=== PATIENT | male | born 1940 | race African-American/Black ===

== ENCOUNTER 2017-04-01 09:45 | Day surgery (SDC) | payer MEDICARE, OTHER ==
[~2017-04-01 09:45] MED LIST: BUPIVACAINE HCL 0.75% INJ/PF (7.5 MG/1 ML) 10 ML SDV OS PRN; KETOROLAC TROMETHAMINE 0.45% 4 DROP/0.4 ML DROPERETTE OS PRN; LIDOCAINE 4% INJ/PF (40 MG/ML) 5 ML AMPUL OS PRN
[2017-04-01] MEDS ORDERED: PHENYLEPHRINE/KETOROLAC 1%-0.3% 4 ML VIAL ONE (10:34)
[2017-04-01] MEDS ORDERED: HYALURONATE SODIUM SYRINGE 0.55 ML ONE (10:35)
[2017-04-01] MEDS ORDERED: CHONDR SU A NA/HYALUR INTRAOC KIT (SURGICARE) ONE (10:35)
[2017-04-01] MEDS ORDERED: LIDOCAINE 1% INJ-PF (10 MG/ML) 30 ML SDV ONE (10:35)
[2017-04-01] MEDS: CYCLOPENTOLATE 0.2%/PHENYLEPHRINE 1% OPH SOLN 2 ML OS PRN ×3 (10:55→11:21)
[2017-04-01] MEDS: TROPICAMIDE 1% OPH SOLN 3 ML OS PRN ×3 (10:55→11:21)
[2017-04-01] MEDS: BESIFLOXACIN HCL 0.6% OPH SUSP 5 ML BOTTLE OS PRN ×3 (10:56→12:19)
[2017-04-01] MEDS: TETRACAINE HCL 0.5% OPH SOLN 0.6 ML DROPERETTE OS PRN ×2 (10:58→11:22)
[2017-04-01] MEDS ORDERED: FENTANYL CITRATE INJ/PF 100 MCG/2 ML AMPUL ONE (11:09)
[2017-04-01] MEDS ORDERED: MIDAZOLAM 2 MG/2 ML INJ ONE (11:09)
--- NOTE | 2017-04-01 12:43 | [facility] OPERATIVE REPORT E ---
[facility] Operative Report NAME: JV SANTANA AGE: 77Y DATE OF SURGERY: ROOM: [facility] Operative Report PREOPERATIVE DIAGNOSES: 1. CATARACT, LEFT EYE. 2. GLAUCOMA, LEFT EYE. POSTOPERATIVE DIAGNOSES: 1. CATARACT, LEFT EYE. 2. GLAUCOMA, LEFT EYE. PROCEDURES PERFORMED: 1. PHACOEMULSIFICATION WITH INTRAOCULAR LENS IMPLANT, LEFT EYE. 2. INSERTION OF iSTENT, LEFT EYE. SURGEON: XAVIER DUMONT MD ANESTHESIA: TOPICAL WITH MAC. PROCEDURE: The patient was brought to the Operating Room and placed on the operative table. Following tetracaine drops, topical anesthesia was administered. This consisted of instrument wipe pledgets soaked in a solution of 4% Xylocaine mixed with 0.75% Marcaine in a 1:2 ratio. A 2 x 1 cm pledget was placed in the superior fornix. A 1 x 1 cm pledget was placed in the inferior fornix. The eye was patched shut for 5 minutes. The patch was removed. The eye was sterilely prepped and draped in the usual manner. Lid speculum was placed in the eye. The pledgets were removed. 4-0 black silk sutures were placed around the superior and the inferior rectus muscles to be used as traction. A conjunctival peritomy was made at the 10 o'clock position. Hemostasis was obtained with bipolar cautery. A posterior limbal groove was created using a crescent knife and dissected anteriorly towards the cornea. A sharp point blade was used to create a paracentesis site at the 2 o'clock position. A 2.4 mm keratome was used to enter the anterior chamber through the groove. Viscoelastic was injected into the anterior chamber. An anterior capsulotomy was performed using Utrata forceps in a capsulorrhexis fashion. Hydrodissection and hydrodelineation were performed. Phacoemulsification was performed in lqshzh-gvj-gtgkjte technique. A total of 52 seconds phaco time was used. Following this, the I/A unit was used to remove residual cortex. Viscoelastic was injected into the capsular bag. Intraocular lens model [id number], 20.5 diopters, serial number [id number] was placed in the capsular bag. Provisc was used to deepen the anterior chamber. The gonioprism was placed on the eye after this was then rotated 30 degrees, and the trabecular meshwork was visualized. The iSTENT was opened and placed in the trabecular meshwork. The I/A unit was used to remove residual viscoelastic. The wound was seen to be watertight under high and low pressure, and no sutures were placed. The intraocular lens was well centered. The pressure was adjusted in the eye to normal pressure. The 4-0 black silk sutures and lid speculum were removed. The eye was shielded after Besivance drops were placed. The patient tolerated the procedure well and was sent to the Recovery Room in good condition. DICTATING PHYSICIAN: XAVIER DUMONT M.D. DICTATING PHYSICIAN: XAVIER DUMONT M.D. [id number] PHY#: [id number] ID: [id number] JOB#: [id number] ACCT: [id number] cc:XAVIER DUMONT M.D. > MTDD
--- NOTE | 2017-04-01 12:48 | [facility] DISCHARGE SUMMARY E ---
[facility] Discharge Summary NAME: JV SANTANA AGE: 77Y ADMITTED: 04/01/2017 DISCHARGED: 04/01/2017 FINAL DIAGNOSES: 1. Cataract, left eye. 2. Glaucoma, left eye. HOSPITAL COURSE: The patient is a 77-year-old gentleman who underwent uneventful cataract extraction with intraocular lens implant, left eye, with insertion of iSTENT on 04/01/17. DISPOSITION: The patient was discharged to home. DISCHARGE INSTRUCTIONS: He is instructed to resume preoperative medications, including glaucoma drops, to use Durezol, Ilevro, and Besivance at 3 p.m. and 8 p.m., and to follow up in my office in 1 day. DICTATING PHYSICIAN: XAVIER DUMONT M.D. [id number] PHY#: [id number] ID: [id number] JOB#: [id number] ACCT: [id number] cc:XAVIER DUMONT M.D. >
== END 2017-04-01 13:03 | disposition home or self-care (01) ==
LOC: SC 09:45
PROVIDERS: ATTEND Ophthalmology
PROC: 089330Z Drainage of Left Anterior Chamber with Drainage Device, Percutaneous Approach (ICD-10-PCS; 2017-04-01)
PROC: 08RK3JZ Replacement of Left Lens with Synthetic Substitute, Percutaneous Approach (ICD-10-PCS; principal; 2017-04-01 11:45)
DX: H25.12 Age-related nuclear cataract, left eye (principal); H40.1122 Primary open-angle glaucoma, left eye, moderate stage; H57.03 Miosis; H21.81 Floppy iris syndrome; H40.1113 Primary open-angle glaucoma, right eye, severe stage; H43.813 Vitreous degeneration, bilateral; I10 Essential (primary) hypertension; E78.00 Pure hypercholesterolemia, unspecified; R01.1 Cardiac murmur, unspecified; G47.30 Sleep apnea, unspecified; I49.9 Cardiac arrhythmia, unspecified; Z87.891 Personal history of nicotine dependence; Z79.82 Long term (current) use of aspirin; Z79.899 Other long term (current) drug therapy; Z95.0 Presence of cardiac pacemaker
CPT/HCPCS: 0191T; 66984; 142; C1783; C9447; J2250; J3010; J3490; V2632

== ENCOUNTER 2018-06-14 11:36 | Emergency (ER) | payer MEDICARE, OTHER ==
--- NOTE | 2018-06-14 12:56 | RADIOLOGY REPORT (SQ) ---
EXAM DESCRIPTION: CT HEAD WITHOUT COMPLETED DATE/TIME: 06/14/2018 12:41 pm REASON FOR STUDY: Altered Mental Status COMPARISON: None. TECHNIQUE: Axial images acquired through the brain without intravenous contrast. Images reviewed wi th bone, brain and subdural windows. Images stored on PACS. All CT scanners at this facility use dose modulation, iterative reconstruction, and/or weight based d osing when appropriate to reduce radiation dose to as low as reasonably achievable (ALARA). [facility]: Dose Right [facility]: SureCare [facility]: Dose Right [facility]: Teradose 4D [facility]: [employer] RADIATION DOSE: CT Rad equipment meets quality standard of care and radiation dose reduction techniq ues were employed. CTDIvol: 53.2 mGy. DLP: 964 mGy-cm. mGy. LIMITATIONS: None. FINDINGS: VENTRICLES: Normal size and contour. CEREBRUM: No mass effect. No hemorrhage. No midline shift. Normal manning/white matter differentiatio n. No evidence for acute territorial infarction. CEREBELLUM: No mass effect. No hemorrhage. No alteration of density. No evidence for acute infarct ion. EXTRAAXIAL SPACES: No fluid collections. ORBITS AND GLOBE: Symmetrical contour of the globes. CALVARIUM: No depressed skull fracture. PARANASAL SINUSES: No air-fluid level. SOFT TISSUES: No hematoma. IMPRESSION: No acute intracranial hemorrhage or acute territorial infarct. TECHNICAL DOCUMENTATION: JOB ID: [id number] [id number]: Final reports with documentation of one or more dose reduction techniques (e.g., Automate d exposure control, adjustment of the mA and/or kV according to patient size, use of iterative recons truction technique) 2010 [employer]- All Rights Reserved Reading location - IP/workstation name: [email or web address]
--- NOTE | 2018-06-14 13:03 | ER Document Report ---
ED General - General Chief Complaint: Altered Mental Status Stated Complaint: DIZZINESS Time Seen by Provider: 06/14/18 12:35 TRAVEL OUTSIDE OF THE [place] IN LAST 30 DAYS: No - HPI Notes: Patient is a 78-year-old male with a history of hypertension who presents to the ED with restoration family members with concern of fatigue noted during Friday school. Patient states that he does live at home and has no local family members around. Muslim members state that they noticed that he was falling asleep during the lesson which prompted them to start talking to him at that point. Muslim member states that he tested strength in all extremities and did not notice any focal weakness, droop, or slurring. Muslim member states that he has been responsive normally. When asked how he was feeling at that time, patient stated that he was just feeling "tired." He does state that he ate and took his medication this morning. He has been urinating normally and having normal bowel movements. Patient has no concerns or complaints at this time. Denies any drug allergies. Patient states that he feels well enough to go home right now. Muslim member states that he was "never altered," just acting "tired." Denies any headache, fever, head injury, neck pain, changes in vision/ speech/mentation/hearing, URI, sore throat, chest pain, palpitations, syncope, cough, shortness of breath, wheeze, dyspnea, abdominal pain, nausea/vomiting/ diarrhea, urinary retention, dysuria, hematuria, loss of control of bowel or bladder, numbness/tingling, saddle anesthesia, muscle paralysis/weakness, or rash. - Related Data Allergies/Adverse Reactions: No Known Allergies Allergy (Unverified 03/26/17 11:41) Past Medical History - Social History Smoking Status: Unknown if Ever Smoked Family History: Reviewed & Not Pertinent Patient has suicidal ideation: No Patient has homicidal ideation: No - Past Medical History Cardiac Medical History: Reports: Hx Hypercholesterolemia, Hx Hypertension Denies: Hx Heart Attack Pulmonary Medical History: Denies: Hx Asthma Neurological Medical History: Denies: Hx Cerebrovascular Accident, Hx Seizures Renal/ Medical History: Denies: Hx Peritoneal Dialysis GI Medical History: Reports: Hx Gastroesophageal Reflux Disease. Denies: Hx Hepatitis, Hx Hiatal Hernia, Hx Ulcer Psychiatric Medical History: Reports: Hx Post Traumatic Stress Disorder Infectious Medical History: Denies: Hx Hepatitis Past Surgical History: Reports: Hx Cardiac Surgery - Pacemaker, Hx Pacemaker. Denies: Hx Open Heart Surgery Review of Systems - Review of Systems -: Yes All other systems reviewed and negative Physical Exam - Vital signs Vitals: Resp Pulse Ox 13 94 06/14/18 11:46 06/14/18 11:46 - Notes Notes: PHYSICAL EXAMINATION: GENERAL: Well-appearing, well-nourished and in no acute distress. A&Ox4. Answers questions appropriately. Cooperative, communicative, laughs, jokes. HEAD: Atraumatic, normocephalic. Non-tender. EYES: Pupils equal round and reactive to light, extraocular movements intact, sclera anicteric, conjunctiva are normal. No nystagmus. vis beal intact. ENT: EAC clear b/l. TM's intact b/l without erythema, fluid, or perforation. Nares patent and without discharge. oropharynx clear without exudates. No tonsilar hypertrophy or erythema. Moist mucous membranes. No sinus tenderness. NECK: Normal range of motion, supple without lymphadenopathy. No rigidity/ meningismus. No midline tenderness. LUNGS: Breath sounds clear to auscultation bilaterally and equal. No wheezes rales or rhonchi. HEART: Regular rate and rhythm without murmurs, rubs, gallops. ABDOMEN: Soft, nontender, nondistended abdomen. No guarding, no rebound. Normal bowel sounds present. No CVA tenderness bilaterally. Musculoskeletal: Ext's b/l: FROM to passive/active. Strength 5+/5. No deficits noted. No bony tenderness of extremities. Extremities: No cyanosis, clubbing, or edema b/l. Peripheral pulses 2+. Capillary refill less than 2 seconds. NEUROLOGICAL: NIH 0. GCS 15. Cranial nerves grossly intact. Normal speech. Normal sensory, motor exams. Reflexes 2+ b/l. ZITA's negative. Pronator drift negative. Heel/vu, finger/nose wnl. PSYCH: Normal mood, normal affect. SKIN: Warm, Dry, normal turgor, no rashes or lesions noted. Course - Re-evaluation Re-evalutation: 06/14/18 16:08 Patient is an afebrile, well-hydrated, 78-year-old male who presents to the ED with fatigue prior to arrival. Vitals are acceptable without any significant tachycardia, tachypnea, or hypoxia. PE is otherwise unremarkable for any focal neurological deficits. Patient is nontoxic-appearing and is tolerating p.o. without any difficulties. Patient states that he has felt normal since prior to arrival. NIH 0, GCS 15, cranial nerves grossly intact. CT of the head was unremarkable along with a CBC, CMP, urinalysis, urine drug screen, alcohol. Patient did not have any obvious stroke like symptoms to indicate possible TIA aside from the fatigue, see HPI. Patient never had any chest pain, syncope, shortness of breath, dyspnea on exertion which makes acute cardiopulmonary etiology unlikely. Patient was able to ambulate around the room without any difficulties. I did review the option of admission for observation versus discharge to home with the patient. Patient states that he will not stay in the hospital and wants to go home. Risk and benefit fully reviewed and understood of this decision. She is aware that his condition can change and he needs to seek medical attention if so immediately. Low suspicion for any acute glaucoma, temporal arteritis, meningitis, intracranial hemorrhage, severe ischemic stroke, severe dehydration, or fracture at this time. Recheck with your PCM in 1-2 days. Return to the ED with any worsening/concerning symptoms otherwise as reviewed in discharge. Patient is in agreement. - Vital Signs Vital signs: Temp Pulse Resp BP Pulse Ox 98 F 68 13 190/70 H 95 06/14/18 12:08 06/14/18 12:10 06/14/18 14:00 06/14/18 14:12 06/14/18 14:00 - Laboratory Result Diagrams: 06/14/18 13:34 06/14/18 13:34 Laboratory results interpreted by me: 06/14/18 06/14/18 06/14/18 11:52 13:34 13:34 RBC 4.10 L Hgb 13.0 L Plt Count 144 L Est GFR (Non-Af Amer) 56 L Glucose 116 H POC Glucose 127 H Magnesium 2.5 H ALT 12 L Alkaline Phosphatase 135 H Urine Glucose (UA) Urine Ascorbic Acid 06/14/18 15:28 RBC Hgb Plt Count Est GFR (Non-Af Amer) Glucose POC Glucose Magnesium ALT Alkaline Phosphatase Urine Glucose (UA) 50 H Urine Ascorbic Acid 20 H Discharge - Discharge Clinical Impression: Fatigue Qualifiers: Fatigue type: unspecified Qualified Code(s): R53.83 - Other fatigue Condition: Stable Disposition: HOME, SELF-CARE Additional Instructions: Maintain adequate fluid and food intake Take home medications as directed healthy diet Monitor blood pressure daily and keep a log Monitor symptoms for any acute changes Recheck with your PCM in 1-2 days* Consider a follow-up with cardiology Return to the ED with any worsening symptoms and/or development of fever, headache, changes in behavior/mentation/vision/speech, chest pain, palpitations , syncope, shortness of breath, trouble breathing, abdominal pain, n/v/d, blood in stool/urine, loss of control of bowel/bladder, urinary retention, muscle weakness/paralysis, saddle anesthesia, numbness/tingling, or other worsening symptoms that are concerning to you. Forms: Elevated Blood Pressure Referrals: [facility] [Provider Group] - Follow up tomorrow DON GARBER [NO LOCAL MD] - Follow up tomorrow
[2018-06-14 13:48] LABS: ABSOLUTE EOSINOPHILS # (AUTO) 0.1 10^3/uL (0.0-0.6); ABSOLUTE MONOCYTES (AUTO) 0.4 10^3/uL (0.1-1.4); ABSOLUTE NEUT (AUTO) 2.8 10^3/uL (1.7-8.2); EOSINOPHILS % (AUTO) 2.9 % (0-6); LYMPHOCYTES % (AUTO) 22.4 % (13-45); MEAN CORPUSCULAR HEMOGLOBIN 31.7 pg (27.0-33.4); MEAN CORPUSCULAR HGB CONC 34.2 g/dL (32.0-36.0); MEAN CORPUSCULAR VOLUME 93 fl (80-97); MONOCYTES % (AUTO) 9.3 % (3-13); PLATELET COUNT 144 10^3/uL (150-450); RED CELL DISTRIBUTION WIDTH 13.6 % (11.5-14.0); SEGMENTED NEUTROPHILS % (AUTO) 64.4 % (42-78); TOTAL CELLS COUNTED % (AUTO) 100 %; WHITE BLOOD COUNT 4.3 10^3/uL (4.0-10.5)
[2018-06-14 14:12] LABS: ALANINE AMINOTRANSFERASE 12 U/L (21-72); ALBUMIN 3.9 g/dL (3.5-5.0); ALKALINE PHOSPHATASE 135 U/L (38-126); ANION GAP 9 (5-19); ASPARTATE AMINO TRANSFERASE 21 U/L (17-59); BILIRUBIN,DIRECT 0.3 mg/dL (0.0-0.4); BILIRUBIN,TOTAL 0.7 mg/dL (0.2-1.3); BLOOD UREA NITROGEN 16 mg/dL (7-20); CALCIUM 9.4 mg/dL (8.4-10.2); CARBON DIOXIDE 26 mmol/L (22-30); CHLORIDE 106 mmol/L (98-107); GLUCOSE 116 mg/dL (75-110); TOTAL PROTEIN 6.7 g/dL (6.3-8.2)
[2018-06-14 14:13] LABS: ALCOHOL < 10 mg/dL (NONE DETECTED)
[2018-06-14 15:46] LABS: APPEARANCE,URINE SLIGHTLY-CLOUDY; BILIRUBIN,URINE NEGATIVE (NEGATIVE); COLOR,URINE COLORLESS; GLUCOSE, URINE 50 mg/dL (NEGATIVE); KETONES,URINE NEGATIVE (NEGATIVE); LEUKOCYTE ESTERASE,URINE NEGATIVE (NEGATIVE); NITRITE,URINE NEGATIVE (NEGATIVE); PROTEIN,URINE NEGATIVE (NEGATIVE); URINE SPECIFIC GRAVITY 1.004; UROBILINOGEN,URINE NEGATIVE mg/dL (<2.0)
[2018-06-14 16:01] LABS: URINE AMPHETAMINES SCREEN NEGATIVE; URINE BARBITURATES SCREEN NEGATIVE; URINE BENZODIAZEPINES SCREEN NEGATIVE; URINE COCAINE SCREEN NEGATIVE; URINE MARIJUANA (THC) SCREEN NEGATIVE; URINE METHADONE SCREEN NEGATIVE; URINE PHENCYCLIDINE SCREEN NEGATIVE
[2018-06-14 16:48] VITALS: BP 180/76
--- NOTE | 2018-06-14 16:57 | EKG REPORT ---
SEVERITY:- ABNORMAL ECG - ATRIAL-PACED COMPLEXES FIRST DEGREE AV BLOCK PROBABLE LEFT ATRIAL ABNORMALITY BORDERLINE T ABNORMALITIES, INFERIOR LEADS : Confirmed by: Iman Melara MD 14-Jun-2018 16:56:46
== END 2018-06-14 16:48 | disposition home or self-care (01) ==
LOC: ER 11:36
DX: R53.83 Other fatigue (principal); I10 Essential (primary) hypertension; Z95.0 Presence of cardiac pacemaker
CPT/HCPCS: 36415; 70450; 80053; 80307; 81001; 82962; 83735; 85025; 93005; 93010; 99285